=== PATIENT | male | born 1980 | race Two or more races ===

== ENCOUNTER 2020-07-26 12:35 | Emergency (ER) | payer SELFPAY ==
--- NOTE | 2020-07-26 13:52 | EDM.PDOC ---
ED HPI GENERAL MEDICAL PROBLEM - General Chief Complaint: Neurological Problem Stated Complaint: RINGING IN EARS, LT EAR UNABLE TO HEAR, DIZZY Time Seen by Provider: 07/26/20 13:19 Source of Information: Reports: Patient History Limitations: Reports: No Limitations - History of Present Illness INITIAL COMMENTS - FREE TEXT/NARRATIVE: Mr. Nelson is a very pleasant 40-year-old gentleman who now presents with a 7-day history of vertigo, only with movement, particularly up and down or standing movement, along with associated nausea, left ear tinnitus, and the sensation that his left ear is plugged. He also reports decreased hearing in his left ear. He states that his symptoms began on 07/19/2020, after he and his drove to [place]. He denies having ear pain or a headache. No recent fever. No prior similar symptoms. The patient states that he has been taking [id number]-[id number] Sudafed, which has not helped. Here in the ED, the patient is found to be hemodynamically stable, afebrile, saturating 97% on room air. Prior to 1 week ago, the patient denies having a recent fever, chills, sore throat, ear pain, nasal or sinus congestion, cough, dyspnea, chest pain, palp itations, nausea, vomiting, constipation, diarrhea, abdominal pain, urinary symptoms, recent weight gain or weight loss, recent bloody bowel movements or black bowel movements, recent joint aches, headaches, or rashes. The patient does not have a PCP. He has not received an influenza vaccine this season, but agreed to receive one here today. - Related Data Allergies Allergy/AdvReac Type Severity Reaction Status Date / Time ibuprofen [From Advil] Allergy Burning Verified 07/26/20 12:47 Home Meds: Home Meds . [No Known Home Meds] 07/26/20 [History] Past Medical History Endocrine/Metabolic History: Reports: Obesity/BMI 30+ Social & Family History - Tobacco Use Tobacco Use Status *Q: Current Some Day Tobacco User Years of Tobacco use: 26 Packs/Tins Daily: 0.1 Packs/Tins Daily Comment: Down from 2 ppd - Caffeine Use Caffeine Use: Reports: None - Alcohol Use Alcohol Use History: Yes Alcohol Use Frequency: Socially - Recreational Drug Use Recreational Drug Use: No - Living Situation & Occupation Living situation: Reports: , with Spouse Occupation: Unemployed ED ROS ENT - Review of Systems Review Of Systems: Comprehensive ROS is negative, except as noted in HPI. ED EXAM, ENT - Physical Exam Exam: See Below Exam Limited By: No Limitations General Appearance: Alert, WD/WN, No Apparent Distress Eye Exam: Bilateral Eye: EOMI, Normal Inspection, PERRL Ears: Normal External Exam, Normal Canal, Hearing Grossly Normal, Normal TMs Nose: No Blood, Clear Rhinorrhea, Nasal Swelling (significant, bilateral, Rt > Lt) Mouth/Throat: Normal Inspection, Normal Gums, Normal Lips, Normal Oropharynx, Normal Teeth Head: Atraumatic, Normocephalic Neck: Normal Inspection, Supple, Non-Tender, Full Range of Motion. No: Lymphadenopathy (L), Lymphadenopathy (R) Respiratory/Chest: No Respiratory Distress, Lungs Clear, Normal Breath Sounds, No Accessory Muscle Use Cardiovascular: Normal Peripheral Pulses, Regular Rate, Rhythm, No Gallop, No JV D, No Murmur, No Rub GI/Abdominal: Normal Bowel Sounds, Soft, Non-Tender, No Organomegaly, No Distention, No Abnormal Bruit, No Mass Back: Normal Inspection, Full Range of Motion Extremities: Normal Inspection, Normal Range of Motion, No Pedal Edema, Normal Capillary Refill Neurological: Alert, Oriented, CN II-XII Intact, Normal Cognition, No Motor/Sensory Deficits, Other (Favian Hallpike maneuver negative bilaterally, with no induction of vertigo, nystagmus, or nausea) Psychiatric: Normal Affect Skin: Warm, Dry, Intact, Normal Color, No Rash Course - Vital Signs Last Recorded V/S: Last Vital Signs Temp 36.8 C 07/26/20 12:43 Pulse 81 07/26/20 12:43 Resp 16 07/26/20 12:43 BP 146/90 H 07/26/20 12:43 Pulse Ox 97 07/26/20 12:43 - Orders/Labs/Meds Meds: Medications Discontinued Medications Generic Name Dose Route Start Last Admin Trade Name Levarq PRN Reason Stop Dose Admin Influenza Virus Vaccine 1 each 07/26/20 13:44 Pharmacy To Dose - Influenza Vaccine IM 07/26/20 13:45 ONETIME ONE Influenza Virus Vaccine 60 mcg 07/26/20 14:15 07/26/20 14:15 Fluzone Quad Syringe IM 07/26/20 14:16 60 mcg .ONCE ONE Administration - Re-Assessments/Exams Free Text/Narrative Re-Assessment/Exam: 07/26/20 13:44 Based on the patient's history, it is difficult to say whether his vertigo and tinnitus is due to Mnire disease or BPPV, however, on physical exam, he has significant nasal mucosal edema, therefore his symptoms could simply be due to sinus pressure, which is consistent with his negative Favian-Hallpike maneuver. Since his symptoms have been going on for a full week, I am recommending that he begin using a nasal steroid spray, which is available [id number]. If his symptoms resolve, nothing further is needed, however, if his symptoms persist, I would like him to follow-up with ENT. The patient will be given an influenza vaccine prior to discharge. Departure - Departure Time of Disposition: 13:46 Disposition: Home, Self-Care 01 Condition: Good Clinical Impression: Vertigo, Tinnitus, Nasal congestion - Discharge Information *PRESCRIPTION DRUG MONITORING PROGRAM REVIEWED*: Not Applicable *COPY OF PRESCRIPTION DRUG MONITORING REPORT IN PATIENT GISELLA: Not Applicable Instructions: Dizziness, [id number] Referrals: Don Jasso MD [Ordering Only Provider] - Forms: ED Department Discharge Additional Instructions: You were seen in the emergency room for 1 week of dizziness, particularly with movement, with associated nausea, and ringing in your left ear. You were asymptomatic in the ER, and your symptoms were not able to be induced despite specific maneuvers. The cause of your symptoms is not known. You may have a condition called Mnire disease, or you may have a different condition called benign paroxysmal positional vertigo (BPPV). It is also possible that your symptoms are due to sinus congestion. We recommend that you purchase and begin using an [id number] nasal steroid spray, such as fluticasone (Flonase) or mometasone (Nasonex), as directed on the label. Generics are just as good as the name brand. If your symptoms persist despite taking either fluticasone or mometasone, we recommend that you follow-up with the ENT Dr. Don Jasso, in [place]. If any other problems, please do not hesitate to return to the ER. You were given an influenza vaccine during your ER visit. Sepsis Event Note (ED) - Evaluation Sepsis Screening Result: No Definite Risk - Focused Exam Vital Signs: Vital Signs Temp Pulse Resp BP Pulse Ox 07/26/20 12:43 36.8 C 81 16 146/90 H 97
[2020-07-26] MEDS ORDERED: FLU VACC QS2020-21(6MOS UP)/PF 60 MCG/0.5 ML SYRINGE IM ONE (14:15)
== END 2020-07-26 14:27 | disposition home or self-care (01) ==
LOC: JD.ED 12:35
DX: H93.12 Tinnitus, left ear (principal); R42 Dizziness and giddiness; F17.210 Nicotine dependence, cigarettes, uncomplicated; R09.81 Nasal congestion; E66.9 Obesity, unspecified; Z68.35 Body mass index [BMI] 35.0-35.9, adult; Z23 Encounter for immunization; Z88.6 Allergy status to analgesic agent
CPT/HCPCS: 90686; 99282; 99283-25; G0008